=== PATIENT | male | born 1955 | race Caucasian/White ===

== ENCOUNTER → 2024-01-19 | Outpatient (CLI) | payer MEDICARE ==
--- NOTE | 2024-01-20 18:05 | PE ---
EXAMINATION TYPE: PET CT fusion skull to thigh DATE OF EXAM: 01/19/2024 CLINICAL INDICATION:Male, 69 years old with history of C61 Prostate CA; concern for metastatic diseas e. TECHNIQUE: Following the intravenous administration of 5.91 mCi of F-18 FDG, whole body images are performed from the skull base to the midthigh. Images are reviewed on the computer in the coronal, a xial, and sagittal planes. Reconstructed rotating images are created on independent workstation and reviewed on the computer. A non-contrast CT is performed in conjunction with the PET scan. CT DLP: 1045 mGycm, Automated exposure control for dose reduction was used. COMPARISON: CT None, PET/CT None, MRI: None FINDINGS: Mediastinal SUV mean is 1.4. Hepatic parenchyma SUV mean is 1.0. SKULL BASE AND NECK: * Diffuse uptake within the left thyroid gland max SUV 10.2. * Nodules are present. CHEST, MEDIASTINUM, AND HILAR REGION: * No suspicious radiotracer activity. * Prevascular space 14 mm short axis probable pericardial cyst max SUV 1.3. Measuring 5 [place] u nits. ABDOMEN AND PELVIS: * Radiotracer avid lymph nodes in the retroperitoneum on the left of the aorta, example includes kisha suring up to 8 mm short axis series 3 image 2 7 Max SUV 31.3. * Left iliac chain lymph node max SUV 11.3 measuring 6 mm in short axis. * Bilateral pelvic sidewall lymph nodes max SUV on the right 26.4 and on the left 34 measuring 7 mm and 10 mm in short axis respectively. * The prostate gland is enlarged up to 6.0 cm in transverse dimension with focal uptake in the poste rior middle portion max SUV 25.45 in the left central gland max SUV 6.6. MUSCULOSKELETAL STRUCTURES: No suspicious radiotracer activity. OTHER CT: Low lung volumes present. Moderate cardiomegaly. Coronary artery atherosclerosis. The appen hola is normal. No obstructive uropathy or renal calculus. Renal cortical probable left cyst. Scattere d colonic diverticula. Fat-containing umbilical hernia. Left adrenal nodule compatible with adrenal a denoma. IMPRESSION: 1. Focal uptake within the prostate gland posteriorly with evidence of metastatic prostate adenocarc inoma including retroperitoneal lymph nodes and pelvic lymph nodes. No bony involvement at this time definitively visualized. 2. Left thyroid gland uptake further evaluation with dedicated thyroid ultrasound recommended.
== END | disposition home or self-care (01) ==
LOC: RADPETMAIN 14:31
PROVIDERS: ATTEND Urology
DX: C61 Malignant neoplasm of prostate
CPT/HCPCS: 78815

== ENCOUNTER → 2024-02-09 | Outpatient (CLI) | payer MEDICARE ==
--- NOTE | 2024-02-13 07:09 | US ---
EXAMINATION TYPE: US thyroid st tissue head/neck DATE OF EXAM: 02/09/2024 COMPARISON: PET CT 2023 CLINICAL INDICATION: Male, 69 years old with history of C61 MALIGNANT NEOPLASM OF PROSTATE; GLAND SIZE: Right Lobe: 3.7 x 1.8 x 1.5 cm Overall Parenchyma: heterogeneous Left Lobe: 4.7 x 2.7 x 3.3 cm Overall Parenchyma: heterogeneous Isthmus Thickness: 0.5 cm NODULES RIGHT: # of nodules measured on right: 0 LEFT: # of nodules measured on left: 1 1. 3.1 X 2.6 x 2.5 cm, mid, solid or almost completely solid, isoechoic nodule, which is wider than tall, with ill-defined margins, without echogenic foci. Prior size: no previous ISTHMUS: # of nodules measured in the isthmus: 0 Bilateral neck scanned, no evidence of lymphadenopathy. IMPRESSION: 1. Mildly suspicious nodule left lobe thyroid. Fine-needle aspiration recommended. 2017 ACR TI-RADS LEVEL: TR-RADS 3 - Mildly Suspicious: Follow if > 1.5 cm, FNA if > 2.5 cm *Highest TI-RADS level nodule reported [facility], , 02/13/2024 7:07 AM
== END | disposition home or self-care (01) ==
LOC: RADUSWWP 15:07
PROVIDERS: ATTEND Urology
DX: C61 Malignant neoplasm of prostate
CPT/HCPCS: 76536

== ENCOUNTER 2024-03-15 08:02 | Day surgery (SDC) | payer MEDICARE ==
[2024-03-15 08:48] VITALS: RESP 16; TEMP 97.9
[2024-03-15 09:37] VITALS: BP 149/91; PULSE 67
--- NOTE | 2024-03-15 11:30 | US ---
EXAMINATION TYPE: US FNA thyroid first lesion DATE OF EXAM: 03/15/2024 10:06 AM COMPARISON: Thyroid ultrasound CLINICAL INDICATION:Male, 69 years old with history of E04.1 NONTOXIC SINGLE THYROID NODULE; , ATTENDING: Dr. Yaya Farah PROCEDURE: Informed consent was obtained. The risks and benefits of the procedure were discussed with the patien t. The site was marked. Timeout procedure was performed Ultrasound imaging demonstrates left thyroid nodule The patient was prepped, draped in the usual sterile fashion, and locally anesthetized with 1% lidoca ine. Five fine needle aspiration were then performed with a 25 gauge needle. Samples were sent to [facility] pathology department for further analysis. Patient tolerated the procedure without incident and wa s sent home in stable condition. IMPRESSION: Successful ultrasound guided fine needle aspiration [facility], , 03/15/2024 11:27 AM
== END 2024-03-15 09:40 | disposition home or self-care (01) ==
LOC: RADPROMAIN 08:02
PROVIDERS: ATTEND Urology
DX: E04.1 Nontoxic single thyroid nodule (principal)
CPT/HCPCS: 10005; 36415; 88173; 88305